=== PATIENT | female | born 1925 | race Caucasian/White ===

== ENCOUNTER 2017-02-05 18:09 | Emergency (ER) | payer MEDICARE, BC ==
[2017-02-05 18:18] VITALS: BP 125/53
[2017-02-05] MEDS ORDERED: Oxymetazoline 0.05% Nasal Spray 15 ML Bottle NAS ONE (18:44)
[2017-02-05] MEDS ORDERED: Lidocaine 2% Jelly 5 ML Tube MUCMEM STA (18:55)
[2017-02-05] MEDS ORDERED: Lidocaine 2% Jelly 10 ML Urojet MUCMEM ONE (19:00)
--- NOTE | 2017-02-05 19:51 | EDM.PDOC ---
ED HPI GENERAL MEDICAL PROBLEM - General Chief Complaint: ENT Problem Stated Complaint: [facility] Time Seen by Provider: 02/05/17 18:39 Source of Information: Reports: Patient, Family (daughter) History Limitations: Reports: No Limitations - History of Present Illness INITIAL COMMENTS - FREE TEXT/NARRATIVE: 89 year old female presents via [facility] for evaluation and treatment of epistaxis to the left nare. Daughter provides the history. Reports that the patient has had a bloody nose the last night. Resolved last night with pressure. The daughter reports she went to check on her today and found the waste bin full of bloody tissue which prompted the visit to the ER today. Daughter believes she has been picking a the nose and is likely contributing to the epistaxis. No trauma, syncope or dizziness. Patient is on coumadin. She is scheduled to have her INR checked this Friday. 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: Other (see below) Other Treatments PROJECT FINANCIAL ANALYST: pressure to nostrils, ice to nostril - Related Data Allergies Allergy/AdvReac Type Severity Reaction Status Date / Time ciprofloxacin Allergy Hypotension Verified 02/05/17 18:18 piroxicam [From Feldene] Allergy Cannot Verified 02/05/17 18:18 Remember Home Meds: Home Meds Acetaminophen [Tylenol Arthritis] 650 mg PO BID 05/31/16 [History] Alpha Lipoic Acid 600 mg PO DAILY 05/31/16 [History] Aspirin [[place] Aspirin] 81 mg PO DAILY 05/31/16 [History] Bisacodyl [Dulcolax] 1 tab PO DAILY PRN 05/31/16 [History] Diltiazem [Cardizem CD] 180 mg PO DAILY 05/31/16 [History] Dorzolamide HCl/Timolol Maleat [Cosopt Eye Drops] 1 drop EYEBOTH BID 05/31/16 [ History] Furosemide [Lasix] 80 mg PO BID 05/31/16 [History] Multivitamin [Multivitamins] 1 cap PO DAILY 05/31/16 [History] Omeprazole 20 mg PO DAILY 05/31/16 [History] Sennosides [Senna] 1 tab PO DAILY PRN 05/31/16 [History] Vitamin B6-pyridOXINE 50 mg PO BEDTIME 05/31/16 [History] Warfarin [Coumadin] 5 mg PO DAILY 05/31/16 [History] oxyCODONE HCl/Acetaminophen [oxyCODONE-Acetaminophen 5-325] 1 tab PO BID [History] hydrALAZINE HCl [Hydralazine HCl] 25 mg PO BID #60 tablet 06/02/16 [Rx] Metolazone 2.5 mg PO MOFR 09/22/16 [History] Potassium Chloride [Klor-Con 10] 10 meq PO DAILY 09/22/16 [History] Past Medical History HEENT History: Reports: Epistaxis, Glaucoma, Impaired Vision Cardiovascular History: Reports: Afib, CAD, Hypertension, Other (See Below) Other Cardiovascular History: chf Other Genitourinary History: bladder cancer [employer]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 Dermatologic History: Reports: Other (See Below) Other Dermatologic History: Lymphedema - Past Surgical History GI Surgical History: Reports: Appendectomy, Cholecystectomy Musculoskeletal Surgical History: Reports: Hip Replacement, Knee Replacement Social & Family History - Family History Family Medical History: Noncontributory Endocrine/Metabolic: Reports: Diabetes, type II Other Endocrine/Metabolic Family History: mother's family side Oncologic: Reports: Breast, Lung, Ovarian, Prostate Other Oncologic Family History: mother with breast cancer, father with prostate cancer and lobectomy, sister with ovarian cancer - Tobacco Use Smoking Status *Q: Never Smoker Second Hand Smoke Exposure: No - Caffeine Use Caffeine Use: Reports: None Other Caffeine Use: 1-2 cups - Recreational Drug Use Recreational Drug Use: No ED ROS ENT - Review of Systems Review Of Systems: See Below HEENT: Reports: Nosebleed (left nare) Neurological: Denies: Dizziness, Syncope Hematologic/Lymphatic: Reports: Easy Bleeding (on coumadin) ED EXAM, ENT - Physical Exam Exam: See Below Exam Limited By: No Limitations General Appearance: Alert, WD/WN, No Apparent Distress Nose: Normal Inspection, Active Bleeding (slight to the left nare), Dried Blood (left nare). No: Septal Hematoma, Septal Performation Mouth/Throat: Normal Inspection, Normal Gums, Normal Lips, Other (small amount of blood present in the porterior oropharynx) Respiratory/Chest: No Respiratory Distress, Lungs Clear, Normal Breath Sounds Cardiovascular: Normal Peripheral Pulses, Regular Rate, Rhythm Neurological: Alert Psychiatric: Normal Affect, Normal Mood Skin: Warm, Dry ED ENT PROCEDURES - Epistaxis Procedure Indication: Epistaxis, Controlled Recent anticoagulants/antiplatlets: Yes Uncontrolled HTN: No Recent septal/nasal surgery: No Site of bleeding: Left Nare, Anterior Chemical cautery: Silver Nitrate Topical Post cautery: Antibiotic Ointment Complications: No Course - Vital Signs Last Recorded V/S: Last Vital Signs Temp 36.6 C 02/05/17 18:15 Pulse 82 02/05/17 18:15 Resp 18 02/05/17 18:15 BP 125/53 L 02/05/17 18:15 Pulse Ox 96 02/05/17 18:15 - Orders/Labs/Meds Labs: Laboratory Tests 02/05/17 02/05/17 Range/Units 19:00 19:00 WBC 7.70 (3.98-10.04) K/mm3 RBC 3.35 L (3.98-5.22) M/mm3 Hgb 9.9 L (11.2-15.7) gm/L Hct 31.8 L (34.1-44.9) % MCV 94.9 H (79.4-94.8) fl MCH 29.6 (25.6-32.2) pg MCHC 31.1 L (32.2-35.5) g/dl RDW Std Deviation 52.7 H (36.4-46.3) fL Plt Count 269 (182-369) K/mm3 MPV 9.9 (9.4-12.3) fl Neut % (Auto) 67.7 (34.0-71.1) % Lymph % (Auto) 16.1 L (19.3-51.7) % [place] % (Auto) 8.7 (4.7-12.5) % Eos % (Auto) 6.9 H (0.7-5.8) Baso % (Auto) 0.3 (0.1-1.2) % Neut # (Auto) 5.22 (1.56-6.13) K/mm3 Lymph # (Auto) 1.24 (1.18-3.74) K/mm3 [place] # (Auto) 0.67 H (0.24-0.36) K/mm3 Eos # (Auto) 0.53 H (0.04-0.36) K/mm3 Baso # (Auto) 0.02 (0.01-0.08) K/mm3 PT 36.0 H (8.0-13.0) SECONDS INR 3.07 Meds: Medications Discontinued Medications Generic Name Dose Route Start Last Admin Trade Name Madonna PRN Reason Stop Dose Admin Lidocaine HCl 5 ml 02/05/17 18:55 Xylocaine 2% Jelly MUCMEM 02/05/17 18:56 NOW STA Lidocaine HCl 10 ml 02/05/17 19:00 Xylocaine 2% Jelly MUCMEM 02/05/17 19:01 ONETIME ONE Oxymetazoline HCl 1 ml 02/05/17 18:44 02/05/17 19:04 Afrin Original 0.05% Nasal [place] NASIR 02/05/17 18:45 2 spray ONETIME ONE Administration - Re-Assessments/Exams Free Text/Narrative Re-Assessment/Exam: 02/05/17 19:47 Discussed using a nasal tampon, however the daughter felt she would not tolerate this. Decided instead to attempt to cauterize the area. Cautery was achieved with the application of silver nitrite to the left septum. Septum was checked after the application and no perforation present. The patient tolerated the procedure well. No complications. CBC is as follows: WBC 7.7, Hgb 9.9. and plts 269 Pt 36, INR 3.07 Discharge instructions as documented. Departure - Departure Time of Disposition: 19:52 Disposition: Home, Self-Care 01 Condition: Good Clinical Impression: Epistaxis - Discharge Information Instructions: Nosebleed, [id number] Referrals: Nikolas Valadez MD [Primary Care Provider] - Forms: ED Department Discharge Additional Instructions: Do not blow your nose for the next 48 hours. you may dab you nose or spit up any blood in your throat. If you experience another nosebleed apply pressure and lean forward. may try 2 sprays of Afrin [id number] nasal spray as this can cause vasoconstriction and stop the bleeding. Follow-up with your primary care provider if you continue to have problems with nosebleeds. You may need to see ear nose and throat for further management and treatment. Please return to the ER if symptoms change or worsen.
== END 2017-02-05 20:23 | disposition home or self-care (01) ==
LOC: JD.ED 18:09
DX: R04.0 Epistaxis (principal); I25.10 Atherosclerotic heart disease of native coronary artery without angina pectoris; I48.91 Unspecified atrial fibrillation; I11.0 Hypertensive heart disease with heart failure; I50.9 Heart failure, unspecified; M19.90 Unspecified osteoarthritis, unspecified site; F03.90 Unspecified dementia, unspecified severity, without behavioral disturbance, psychotic disturbance, mood disturbance, and anxiety; Z90.49 Acquired absence of other specified parts of digestive tract; Z90.710 Acquired absence of both cervix and uterus; Z96.649 Presence of unspecified artificial hip joint; Z96.659 Presence of unspecified artificial knee joint; Z85.51 Personal history of malignant neoplasm of bladder; Z79.01 Long term (current) use of anticoagulants; Z79.82 Long term (current) use of aspirin; Z79.899 Other long term (current) drug therapy; Z88.1 Allergy status to other antibiotic agents; Z88.8 Allergy status to other drugs, medicaments and biological substances
CPT/HCPCS: 30901; 36415; 85025; 85610; 99283; A9270; 99282-25

== ENCOUNTER 2017-02-27 16:12 | Emergency (ER) | payer MEDICARE, BC ==
[2017-02-27 16:40] VITALS: BP 165/69
--- NOTE | 2017-02-27 17:47 | EDM.PDOC ---
ED HPI GENERAL MEDICAL PROBLEM - General Chief Complaint: ENT Problem Stated Complaint: NOSE BLEED Time Seen by Provider: 02/27/17 17:09 Source of Information: Reports: Patient, RN Notes Reviewed - History of Present Illness INITIAL COMMENTS - FREE TEXT/NARRATIVE: 89 year old female with onset of nose bleed last evening, continues today off and on, slow intermitent oozing L nares. She is on aspirin and also coumadin. Had a normal INR in the 2.6 range about 2 wks ago. She does have moderate dementia. She comes in with a cotton plug L nares, has not been holding much if any pressure. She also has had some drainage down the back of her throat and a few clots. - Related Data Allergies Allergy/AdvReac Type Severity Reaction Status Date / Time ciprofloxacin Allergy Hypotension Verified 02/05/17 18:18 piroxicam [From Feldene] Allergy Cannot Verified 02/05/17 18:18 Remember Home Meds: Home Meds Acetaminophen [Tylenol Arthritis] 650 mg PO BID 05/31/16 [History] Alpha Lipoic Acid 600 mg PO DAILY 05/31/16 [History] Aspirin [[place] Aspirin] 81 mg PO DAILY 05/31/16 [History] Bisacodyl [Dulcolax] 1 tab PO DAILY PRN 05/31/16 [History] Diltiazem [Cardizem CD] 180 mg PO DAILY 05/31/16 [History] Dorzolamide HCl/Timolol Maleat [Cosopt Eye Drops] 1 drop EYEBOTH BID 05/31/16 [ History] Furosemide [Lasix] 80 mg PO BID 05/31/16 [History] Multivitamin [Multivitamins] 1 cap PO DAILY 05/31/16 [History] Omeprazole 20 mg PO DAILY 05/31/16 [History] Sennosides [Senna] 1 tab PO DAILY PRN 05/31/16 [History] Vitamin B6-pyridOXINE 50 mg PO BEDTIME 05/31/16 [History] Warfarin [Coumadin] 5 mg PO DAILY 05/31/16 [History] oxyCODONE HCl/Acetaminophen [oxyCODONE-Acetaminophen 5-325] 1 tab PO BID [History] hydrALAZINE HCl [Hydralazine HCl] 25 mg PO BID #60 tablet 06/02/16 [Rx] Metolazone 2.5 mg PO MOFR 09/22/16 [History] Potassium Chloride [Klor-Con 10] 10 meq PO DAILY 09/22/16 [History] Past Medical History HEENT History: Reports: Epistaxis, Glaucoma, Impaired Vision Cardiovascular History: Reports: Afib, CAD, Hypertension, Other (See Below) Other Cardiovascular History: chf Other Genitourinary History: bladder cancer 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 Dermatologic History: Reports: Other (See Below) Other Dermatologic History: Lymphedema - Past Surgical History GI Surgical History: Reports: Appendectomy, Cholecystectomy Musculoskeletal Surgical History: Reports: Hip Replacement, Knee Replacement Social & Family History - Family History Family Medical History: Noncontributory Endocrine/Metabolic: Reports: Diabetes, type II Other Endocrine/Metabolic Family History: mother's family side Oncologic: Reports: Breast, Lung, Ovarian, Prostate Other Oncologic Family History: mother with breast cancer, father with prostate cancer and lobectomy, sister with ovarian cancer - Tobacco Use Smoking Status *Q: Never Smoker Second Hand Smoke Exposure: No - Caffeine Use Caffeine Use: Reports: Coffee Other Caffeine Use: 1-2 cups - Recreational Drug Use Recreational Drug Use: No ED ROS ENT - Review of Systems Review Of Systems: See Below Constitutional: Denies: Fever, Chills, Diaphoresis HEENT: Reports: Nosebleed Respiratory: Denies: Shortness of Breath Cardiovascular: Denies: Chest Pain GI/Abdominal: Denies: Abdominal Pain, Nausea, Vomiting Musculoskeletal: Reports: No Symptoms Skin: Reports: No Symptoms Neurological: Denies: Trouble Speaking, Difficulty Walking ED EXAM, ENT - Physical Exam Exam: See Below General Appearance: Alert, Anxious (mild) Eye Exam: Bilateral Eye: PERRL Nose: Active Bleeding (slight oozing of blood L nares with some clots present as well) Mouth/Throat: Normal Inspection (no blood at this time) Head: Atraumatic Neck: Supple Respiratory/Chest: No Respiratory Distress, Lungs Clear, Normal Breath Sounds Cardiovascular: Regular Rate, Rhythm Extremities: Normal Inspection. No: Pedal Edema, Leg Pain Neurological: Alert, Other (mild confused, poor short term memory) Skin: Warm, Dry, Normal Color ED ENT PROCEDURES - Epistaxis Procedure Indication: Epistaxis Uncontrolled HTN: No Recent septal/nasal surgery: No Site of bleeding: Left Nare, Anterior Clearing of clots: Patient Blew Nose Topical Meds: Topical Cocaine Chemical cautery: Silver Nitrate Topical Complications: No Course - Vital Signs Last Recorded V/S: Last Vital Signs Temp 99 F 02/27/17 16:34 Pulse 92 02/27/17 16:34 Resp 18 02/27/17 16:34 BP 165/69 H 02/27/17 16:34 Pulse Ox 98 02/27/17 16:34 - Orders/Labs/Meds Meds: Medications Discontinued Medications Generic Name Dose Route Start Last Admin Trade Name Shenq PRN Reason Stop Dose Admin Cocaine HCl 4 ml 02/27/17 17:23 02/27/17 17:53 Cocaine Hcl TOP 02/27/17 17:24 4 ml ONETIME ONE Administration - Re-Assessments/Exams Free Text/Narrative Re-Assessment/Exam: 02/27/17 19:22 no further bleeding after cautery with silver nitrate. Departure - Departure Time of Disposition: 18:35 Disposition: Home, Self-Care 01 Condition: Fair Clinical Impression: Epistaxis - Discharge Information Instructions: Nosebleed Referrals: Nikolas Valadez MD [Primary Care Provider] - Forms: ED Department Discharge Additional Instructions: pressure if needed for further bleeding, do not take the coumadin or aspirin tonight or for the next 2 days, follow up clinic as needed, return to ED as needed.
== END 2017-02-27 18:43 | disposition home or self-care (01) ==
LOC: JD.ED 16:12
DX: R04.0 Epistaxis (principal); F03.90 Unspecified dementia, unspecified severity, without behavioral disturbance, psychotic disturbance, mood disturbance, and anxiety; I10 Essential (primary) hypertension; I48.91 Unspecified atrial fibrillation; I25.10 Atherosclerotic heart disease of native coronary artery without angina pectoris; M19.90 Unspecified osteoarthritis, unspecified site; Z85.51 Personal history of malignant neoplasm of bladder; Z90.49 Acquired absence of other specified parts of digestive tract; Z96.659 Presence of unspecified artificial knee joint; Z96.649 Presence of unspecified artificial hip joint; Z79.01 Long term (current) use of anticoagulants; Z79.82 Long term (current) use of aspirin; Z79.899 Other long term (current) drug therapy; Z88.1 Allergy status to other antibiotic agents; Z88.8 Allergy status to other drugs, medicaments and biological substances
CPT/HCPCS: 30901; 99282; 99283-25

== ENCOUNTER 2017-06-21 07:49 | Emergency (ER) | payer MEDICARE, BC ==
[2017-06-21] MEDS ORDERED: Oxymetazoline 0.05% Nasal Spray 15 ML Bottle NAS ONE (09:23)
[2017-06-21] MEDS ORDERED: Oxymetazoline 0.05% Nasal Spray 15 ML Bottle ONE (09:26)
--- NOTE | 2017-06-21 09:44 | EDM.PDOC ---
ED HPI GENERAL MEDICAL PROBLEM - General Chief Complaint: ENT Problem Stated Complaint: NOSE BLEED Time Seen by Provider: 06/21/17 08:28 Source of Information: Reports: Patient, RN Notes Reviewed - History of Present Illness INITIAL COMMENTS - FREE TEXT/NARRATIVE: 89-year-old lady presents with nosebleed. He lives at the [facility], has fairly severe dementia and with no report from [facility] not sure how long this has been going on. She is noted to be on Coumadin blood thinner and has had history of prior nosebleeds in the past. She has no chest pain or difficulty breathing. She keeps asking why she is here and why she keeps having nosebleeds. - Related Data Allergies Allergy/AdvReac Type Severity Reaction Status Date / Time ciprofloxacin Allergy Hypotension Verified 06/21/17 08:16 piroxicam [From Feldene] Allergy Cannot Verified 06/21/17 08:16 Remember Home Meds: Home Meds Acetaminophen [Tylenol Arthritis] 650 mg PO BID 05/31/16 [History] Alpha Lipoic Acid 600 mg PO DAILY 05/31/16 [History] Aspirin [[place] Aspirin] 81 mg PO DAILY 05/31/16 [History] Bisacodyl [Dulcolax] 1 tab PO DAILY PRN 05/31/16 [History] Diltiazem [Cardizem CD] 180 mg PO DAILY 05/31/16 [History] Dorzolamide HCl/Timolol Maleat [Cosopt Eye Drops] 1 drop EYEBOTH BID 05/31/16 [ History] Furosemide [Lasix] 80 mg PO BID 05/31/16 [History] Multivitamin [Multivitamins] 1 cap PO DAILY 05/31/16 [History] Omeprazole 20 mg PO DAILY 05/31/16 [History] Vitamin B6-pyridOXINE 50 mg PO BEDTIME 05/31/16 [History] Warfarin [Coumadin] 5 mg PO SUMOTUWETHSA 05/31/16 [History] oxyCODONE HCl/Acetaminophen [oxyCODONE-Acetaminophen 5-325] 1 tab PO BID [History] hydrALAZINE HCl [Hydralazine HCl] 25 mg PO BID #60 tablet 06/02/16 [Rx] Metolazone 2.5 mg PO MOFR 09/22/16 [History] Potassium Chloride [Klor-Con 10] 20 meq PO DAILY 09/22/16 [History] Aloe Vera/Sodium Chloride [[place] Saline Nasal Gel] 1 applic NASIR DAILY PRN [History] Menthol [Biofreeze] 1 applic TOP DAILY 06/21/17 [History] Spironolactone [Aldactone] 12.5 mg PO DAILY 06/21/17 [History] Warfarin [Coumadin] 7.5 mg PO FR 06/21/17 [History] Past Medical History HEENT History: Reports: Epistaxis, Glaucoma, Impaired Vision Cardiovascular History: Reports: Afib, CAD, Heart Failure, Hypertension Other Cardiovascular History: chf Other Genitourinary History: bladder cancer [employer]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 Dermatologic History: Reports: Other (See Below) Other Dermatologic History: Lymphedema - Past Surgical History GI Surgical History: Reports: Appendectomy, Cholecystectomy Musculoskeletal Surgical History: Reports: Hip Replacement, Knee Replacement Social & Family History - Family History Family Medical History: Noncontributory Endocrine/Metabolic: Reports: Diabetes, type II Other Endocrine/Metabolic Family History: mother's family side Oncologic: Reports: Breast, Lung, Ovarian, Prostate Other Oncologic Family History: mother with breast cancer, father with prostate cancer and lobectomy, sister with ovarian cancer - Tobacco Use Smoking Status *Q: Never Smoker Second Hand Smoke Exposure: No - Caffeine Use Caffeine Use: Reports: Coffee Other Caffeine Use: 1-2 cups - Recreational Drug Use Recreational Drug Use: No ED ROS ENT - Review of Systems Review Of Systems: See Below Constitutional: Reports: No Symptoms HEENT: Reports: Nosebleed Respiratory: Denies: Shortness of Breath (Left nares) Cardiovascular: Denies: Chest Pain GI/Abdominal: Denies: Abdominal Pain, Nausea, Vomiting Musculoskeletal: Reports: No Symptoms Skin: Reports: No Symptoms Neurological: Denies: Trouble Speaking Psychiatric: Reports: Confusion (Chronic) ED EXAM, ENT - Physical Exam Exam: See Below General Appearance: Alert, Anxious (Mild) Eye Exam: Bilateral Eye: PERRL Nose: Active Bleeding (There is a large amount of clot left nares) Mouth/Throat: Other (Small amount of dark blood noted posterior pharynx) Head: No: Facial Swelling Neck: Supple Respiratory/Chest: No Respiratory Distress, Lungs Clear, Normal Breath Sounds Cardiovascular: Other (Irregular) Extremities: Normal Inspection. No: Pedal Edema, Leg Pain Neurological: Alert, Memory Loss Recent Events, Other (Long-term memory more intact) Skin: Warm, Dry, Normal Color Course - Vital Signs Last Recorded V/S: Last Vital Signs Temp 98.3 F 06/21/17 07:50 Pulse 84 06/21/17 07:50 Resp 18 06/21/17 07:50 BP 159/46 H 06/21/17 07:50 Pulse Ox 100 06/21/17 07:50 - Orders/Labs/Meds Labs: Laboratory Tests 06/21/17 06/21/17 Range/Units 08:46 08:46 WBC 5.05 (3.98-10.04) K/mm3 RBC 2.89 L (3.98-5.22) M/mm3 Hgb 8.1 L (11.2-15.7) gm/L Hct 26.4 L (34.1-44.9) % MCV 91.3 (79.4-94.8) fl MCH 28.0 (25.6-32.2) pg MCHC 30.7 L (32.2-35.5) g/dl RDW Std Deviation 52.7 H (36.4-46.3) fL Plt Count 225 (182-369) K/mm3 MPV 10.3 (9.4-12.3) fl Neut % (Auto) 71.7 H (34.0-71.1) % Lymph % (Auto) 15.4 L (19.3-51.7) % [place] % (Auto) 10.3 (4.7-12.5) % Eos % (Auto) 2.0 (0.7-5.8) Baso % (Auto) 0.4 (0.1-1.2) % Neut # (Auto) 3.62 (1.56-6.13) K/mm3 Lymph # (Auto) 0.78 L (1.18-3.74) K/mm3 [place] # (Auto) 0.52 H (0.24-0.36) K/mm3 Eos # (Auto) 0.10 (0.04-0.36) K/mm3 Baso # (Auto) 0.02 (0.01-0.08) K/mm3 PT 22.8 H (8.0-13.0) SECONDS INR 2.00 Meds: Medications Discontinued Medications Generic Name Dose Route Start Last Admin Trade Name Madonna PRN Reason Stop Dose Admin Cocaine HCl Confirm 06/21/17 08:40 06/21/17 08:45 Cocaine Hcl Administered 06/21/17 08:41 Not Given Dose 4 ml .ROUTE .STK-MED ONE Cocaine HCl 4 ml 06/21/17 08:35 06/21/17 08:40 Cocaine Hcl TOP 06/21/17 08:36 4 ml ONETIME ONE Administration Cocaine HCl 4 ml 06/21/17 10:00 06/21/17 10:00 Cocaine Hcl TOP 06/21/17 10:01 4 ml ONETIME ONE Administration Oxymetazoline HCl 1 ml 06/21/17 09:23 06/21/17 09:25 Afrin Original 0.05% Nasal [place] NASIR 06/21/17 09:24 15 ml ONETIME ONE Administration Oxymetazoline HCl Confirm 06/21/17 09:26 06/21/17 10:00 Afrin Original 0.05% Nasal [place] Administered 06/21/17 09:27 Not Given Dose 15 ml .ROUTE .STK-MED ONE - Re-Assessments/Exams Free Text/Narrative Re-Assessment/Exam: 06/21/17 10:26 Have worked with Afrin nasal spray, cocaine solution, have been able to remove a large amount of clot but there is posterior clot that she is unable to blow out. Have only been able to partially removed with forceps and suction. With the clot not able to see exactly where it is coming from but it does appear to be coming more posterior than anterior. Therefore I'm going to go ahead and put in an AP 7.5 cm Rhino Rocket. 06/21/17 11:14. Have placed a 7.5 cm AP balloon. No further bleeding, slight drainage of clear blood tinged fluid. Will start planning for discharge back to the [facility]. Of note hgb 8.1. BP has been good in the 140's while here in the ED. Departure - Departure Time of Disposition: 11:44 Disposition: DC/Tfer to [facility] Condition: Fair Clinical Impression: Epistaxis Anemia Qualifiers: Anemia type: unspecified type Qualified Code(s): D64.9 - Anemia, unspecified - Discharge Information Referrals: Nikolas Valadez MD [Primary Care Provider] - Forms: ED Department Discharge Additional Instructions: A 7.5 cm Anterior/Posterior balloon has been placed L nares to control bleeding. That should be left in place for 3 days to allow for healing. Also do not take warfarin for 3 days. Have balloon removed at clinic Friday if possible, call for appt. If that does not work out you may return to ED for removal of balloon. Drink plenty of water to maintain hydration.
[2017-06-21 16:39] VITALS: BP 158/48
== END 2017-06-21 12:10 ==
LOC: JD.ED 07:49
DX: R04.0 Epistaxis (principal); D64.9 Anemia, unspecified; I10 Essential (primary) hypertension; Z88.1 Allergy status to other antibiotic agents; Z88.8 Allergy status to other drugs, medicaments and biological substances; Z79.82 Long term (current) use of aspirin; Z79.01 Long term (current) use of anticoagulants; Z79.899 Other long term (current) drug therapy
CPT/HCPCS: 30901; 30903; 36415; 85025; 85610; 99282-25; 99284-25